=== PATIENT | male | born 1960 | race Caucasian/White ===

== ENCOUNTER 2019-10-06 08:19 | Emergency (ER) | payer OTHER, SELFPAY ==
--- NOTE | 2019-10-06 08:24 | ED.GENADULT ---
HPI - General Adult General Chief complaint: Urogenital-Male Stated complaint: Possible UTI Time Seen by Provider: 10/06/19 09:18 Source: patient Mode of arrival: ambulatory Limitations: no limitations History of Present Illness HPI narrative: 59-year-old male patient presents to the [facility] with complaints of urinary symptoms for the past week. Patient states he has had a little bit of discomfort with urination along with some pressure. Patient states he has also noticed he is recently had trouble starting his stream. Patient states he has had a UTI before couple of years ago. Patient states he has been told in the past that he might have an enlarged prostate but has never been checked out by urologist. Denies any fevers, low back pain, abdominal pain. Patient denies any nausea vomiting or diarrhea. Denies taking thing for the pain. Patient states that his significant other did have some leftover antibiotics that he has tried. Related Data Allergies Allergy/AdvReac Type Severity Reaction Status Date / Time No Known Allergies Allergy Verified 10/06/19 08:48 Review of Systems Review of Systems: Narrative: CONSTITUTIONAL: Denies fever, chills, or sweats. EYES: Denies visual changes, redness, or discharge. ENT: Denies rhinorrhea, congestion, sore throat, or otalgia. CARDIOVASCULAR: Denies chest pain, palpitations, or edema. RESPIRATORY: Denies cough or dyspnea. GASTROINTESTINAL: Denies abdominal pain, nausea, vomiting, or diarrhea. GENITOURINARY: Denies dysuria or hematuria. Positive discomfort with urination x1 week SKIN: Denies rash or itching. MUSCULOSKELETAL: Denies back pain, joint pain, or myalgia. NEUROLOGIC: Denies headache, numbness, or weakness. PSYCHIATRIC: Denies anxiety or depression. [facility] Past Medical History Medical History (Updated 10/06/19 @ 09:27 by SCOTT Pfeiffer) Saha's palsy Fractures Left wrist, tailbone Comments At the time of my signature I agree with nursing past medical history, surgical, social, and family history. There is no relevant family history pertinent to the presenting complaint. Exam Narrative: Exam Narrative: GENERAL: Well-appearing, well-nourished, and in no acute distress. HEAD: Normocephalic, atraumatic. EYES: PERRLA and EOMI. ENT: Nares clear, no rhinorrhea or epistaxis. Mucous membranes moist. NECK: Supple. No lymphadenopathy CHEST: Clear to auscultation. No respiratory distress. HEART: Regular rate and rhythm. No murmur heard. Normal peripheral pulses. ABDOMEN: Soft, nontender, nondistended, normal active bowel sounds. No CVA tenderness on percussion. EXTREMITIES: Normal range of motion. No edema. SKIN: Warm, dry, no rash. NEURO: No focal deficits. Alert and oriented x3. Course Vital Signs Vital signs: Vital Signs Temperature 36.8 C 10/06/19 08:38 Pulse Rate 70 10/06/19 08:38 Respiratory Rate 16 10/06/19 08:38 Blood Pressure 153/96 H 10/06/19 08:38 Pulse Oximetry 99 10/06/19 08:38 Temperature 36.8 C 10/06/19 08:38 Pulse Rate 70 10/06/19 08:38 Respiratory Rate 16 10/06/19 08:38 Blood Pressure 153/96 H 10/06/19 08:38 Pulse Oximetry 99 10/06/19 08:38 Vital signs reviewed. The patient has been informed that they may have pre-hypertension or Hypertension based on a BP reading in the department. I recommend that the patient call the primary care provider listed on their discharge instructions or a physician of their choice this week to arrange follow up for further evaluation of possible pre-hypertension or Hypertension Medical Decision Making Differential Diagnosis Differential Diagnosis: Differential diagnosis: Uncomplicated lower UTI, uncomplicated UTI, polynephritis, penile trauma,balanoposthitis, phimosis, paraphimosis, testicular torsion, epididymitis, prostatitis, varicocele, spermatocele, hydrocele, hernia. Discussed with patient that the urine dip does have a little bit of leukocytes and blood in the urine a
[2019-10-06 08:38] VITALS: BP 153/96; PULSE 70; RESP 16; TEMP 36.8; O2SAT 99
--- NOTE | 2019-10-06 09:05 | PC.NURSE ---
Pt is still attempting to provide urine specimen.
== END 2019-10-06 09:30 | disposition home or self-care (01) ==
PROVIDERS: Emergency Provider Nurse Practitioner Family
DX: N30.01 Acute cystitis with hematuria (principal)
CPT/HCPCS: 81003; 87086; 99213; G0463

== ENCOUNTER 2021-10-14 12:24 | Emergency (ER) | payer OTHER, SELFPAY ==
[2021-10-14 12:33] VITALS: BP 178/130; PULSE 83; RESP 16; TEMP 37; O2SAT 99
--- NOTE | 2021-10-14 12:48 | ED_ITS ---
HPI - URI/Sore Throat General Chief Complaint: Upper Respiratory Infection Stated Complaint: Raspy Voice Time Seen by Provider: 10/14/21 12:48 Source: patient Mode of arrival: ambulatory Limitations: no limitations Related Data Home Medications Medication Instructions Recorded Confirmed calcium carbonate-vitamin D3 [All tablet PO 10/14/21 Day Calcium] magnesium mg PO 10/14/21 Allergies Allergy/AdvReac Type Severity Reaction Status Date / Time No Known Allergies Allergy Verified 10/06/19 08:48 [facility] Past Medical History Medical History (Updated 10/14/21 @ 13:00 by Alice Polanco NP) Saha's palsy Fractures Left wrist, tailbone Course Course Level of Care: Express Care Visit Vital Signs Vital signs: Vital Signs Temperature 37.0 C 10/14/21 12:33 Pulse Rate 83 10/14/21 12:33 Respiratory Rate 16 10/14/21 12:33 Blood Pressure 178/130 H 10/14/21 12:33 Pulse Oximetry 99 10/14/21 12:33 Temperature 37.0 C 10/14/21 12:33 Pulse Rate 83 10/14/21 12:33 Respiratory Rate 16 10/14/21 12:33 Blood Pressure 178/130 H 10/14/21 12:33 Pulse Oximetry 99 10/14/21 12:33 Discharge Plan Discharge Clinical Impression: Hoarseness of voice, Elevated blood pressure reading Patient Disposition: Home, Self-Care Condition: Stable Instructions: Antibiotic Form, Hypertension (ED) Additional Instructions: Take medications as prescribed. Follow-up with your primary care physician in 1 week for further evaluation of hoarseness and your elevated blood pressure. Prescriptions: New methylprednisolone [Medrol (Dann)] 4 mg tablets,dose pack See Rx Instructions PO .COMPLEX Qty: 21 RF: 0 fluticasone propionate [Flonase Allergy Relief] 50 mcg/actuation spray,suspension 1 spray intranasal BID Qty: 16 RF: 0 loratadine [Claritin] 10 mg tablet 10 mg PO DAILY Qty: 30 RF: 0 No Action magnesium 100 mg Tablet PO RF: 0 All Day Calcium 600 mg(1,500mg) -500 unit Tablet Extended Release 24 Hr PO RF: 0 Follow-up/Referrals: PHYSICIAN,[employer] [facility] [facility] [Primary Care Provider] - Time of Disposition: 13:00
[2021-10-14 13:12] VITALS: BP 156/112
== END 2021-10-14 13:04 | disposition home or self-care (01) ==
PROVIDERS: Emergency Provider Nurse Practitioner Family
DX: R49.0 Dysphonia (principal); R03.0 Elevated blood-pressure reading, without diagnosis of hypertension
CPT/HCPCS: 99213; G0463

== ENCOUNTER → 2021-11-24 18:32 | Emergency (ER) | payer OTHER, SELFPAY ==
[2021-11-24] VITALS (7 sets, daily range): BP systolic 111–210; BP diastolic 61–103; PULSE 55–99; RESP 12–19; TEMP 36.3; O2SAT 95–98
--- NOTE | ~2021-11-24 | CT_ITS ---
EXAMINATION: CT soft tissue neck chest wo DATE: 11/24/2021 20:13 INDICATION: Laryngitis. Hoarseness. Night sweats. TECHNIQUE: Computed tomography (CT) of the neck and chest was performed without intravenous contrast. The dose-length product was 1639.23 mGy-cm. Automated exposure control and iterative reconstruction technique were employed. COMPARISON: None FINDINGS: NECK: No significant neck soft tissue abnormality. Mucosal and parapharyngeal spaces are symmetric. N o focal walled off fluid collection identified to suggest abscess, although evaluation for abscess li mited without contrast. There is periodontal disease with tooth #12 with possible periapical abscess. There is moderate spondylosis at C5-6 with disc narrowing and to a lesser degree C6-7. No acute bone or joint abnormality. CHEST: No significant pleural or pericardial effusion. Densely calcified granuloma right lower lobe. No endobronchial lesions. Calcified mediastinal lymph nodes, consistent with chronic granulomatous di sease. There is atherosclerosis and ectasia of the ascending thoracic aorta measuring up to 3.7 cm. T here is atherosclerosis of the coronary arteries. No pneumothorax. IMPRESSION: 1. No acute abnormality of the neck or chest. Reviewed, dictated and finalized at location A.
--- NOTE | 2021-11-24 19:59 | ECG_ITS ---
Measurements Intervals [place] Rate: 75 P: 54 [place]: 195 QRS: -3 QRSD: 89 T: 52 QT: 388 QTc: 434 Interpretive Statements SINUS RHYTHM ATRIAL PREMATURE COMPLEXES DELAYED PRECORDIAL R/S TRANSITION LEFT VENTRICULAR HYPERTROPHY BASELINE WANDER- I, II BORDERLINE ECG Electronically Signed On 11-24-2021 20:34:17 CDT by Faheem Peter D.O.
--- NOTE | 2021-11-24 20:02 | ED.URI ---
HPI - URI/Sore Throat General Chief Complaint: Upper Respiratory Infection Stated Complaint: Laryngitis Since JUL Time Seen by Provider: 11/24/21 19:34 Source: patient Mode of arrival: ambulatory Limitations: no limitations History of Present Illness HPI Narrative: This is a 61 year old male that presents to the ER for hoarseness noted since July. Also reports he was having some night sweats. He been evaluated for this a couple of times at Urgent care and finished several rounds of antibiotics and steroids without lasting improvement. Denies fevers. Related Data Home Medications Medication Instructions Recorded Confirmed calcium carb-vitamin D3 ER 600 mg tablet PO 10/14/21 (1,500 mg)-500 unit tablet,ER 24 hr magnesium 100 mg tablet mg PO 10/14/21 Allergies Allergy/AdvReac Type Severity Reaction Status Date / Time No Known Allergies Allergy Verified 11/24/21 18:39 Review of Systems Review of Systems: CONSTITUTIONAL: Reports sweats. Denies fever ENT: Denies sore throat CARDIOVASCULAR: Denies chest pain or edema RESPIRATORY: Denies dyspnea. All systems reviewed & are unremarkable except as noted in HPI and below PMFSH Past Medical History Medical History (Updated 11/24/21 @ 23:32 by Mirna Avelar PA-C) Saha's palsy Fractures Left wrist, tailbone Social History Social History (Updated 11/24/21 @ 20:07 by Mirna Avelar PA-C) Smoking status: Former smoker Tobacco type: cigars Exam Narrative: GENERAL: Well-appearing, well-nourished, and in no acute distress. HEAD: Normocephalic, atraumatic. EYES: EOMI. ENT: Nares clear, no rhinorrhea or epistaxis. Mucous membranes moist. Oropharynx without tonsillar hypertrophy exudate or other lesions. Bilateral TMs pearly ayala non-bulging NECK: Supple. No adenopathy or masses. CHEST: Clear to auscultation. No respiratory distress. No wheezes rales or rhonchi HEART: Regular rate and rhythm. No murmur heard. Normal peripheral pulses. EXTREMITIES: Normal range of motion. No edema. SKIN: Warm, dry, no rash. NEURO: No focal deficits. Alert and oriented x3. PSYCH: Normal mood and affect Course Vital Signs Vital signs: Vital Signs Temperature 97.4 F L 11/24/21 18:36 Pulse Rate 77 11/24/21 18:36 Respiratory Rate 18 11/24/21 18:36 Blood Pressure 210/103 H 11/24/21 18:36 Pulse Oximetry 97 11/24/21 18:36 Oxygen Delivery Room Air 11/24/21 18:36 Temperature 97.4 F L 11/24/21 18:36 Pulse Rate 72 11/24/21 22:01 Respiratory Rate 12 11/24/21 22:01 Blood Pressure 116/69 11/24/21 22:00 Pulse Oximetry 97 11/24/21 22:01 Oxygen Delivery Room Air 11/24/21 18:36 MDM - URI/Sore Throat MDM Narrative Medical decision making narrative: Patient presents to the emergency department for hoarseness ongoing over several months. Also reporting some night sweats. He is afebrile and nontoxic-appearing. Noted to be hypertensive in the 210s-230s systolic. CBC and metabolic panel concerning findings. Due to patient's symptoms CT scan of the neck and chest was obtained which was without acute findings. Patient's blood pressure was treated with IV hydralazine. About 40 minutes after this patient was noted to have likely vasovagal episode with bradycardia. Placed in Trendelenburg with return of normal sinus rhythm. Due to this episode and patient's blood pressure plan was to admit. Patient refuses to stay in the hospital at this time. He was given risks of doing so. He will be signing out AGAINST MEDICAL ADVICE. Was instructed that he should have some close follow-up with his primary doctor. Instructed he can return at any time for further evaluation and management Lab Data Attestation: I reviewed the patient's lab results. Result diagrams: 11/24/21 20:20 11/24/21 20:20 Labs: Lab Results 11/24/21 11/24/21 11/24/21 Range/Units 20:20 20:20 21:29 WBC 5.6 (4.5-10.0) K/mm3 RBC 5.15 (4.6
[2021-11-24 20:31] LABS: Basophils Percent Auto 0.7 % (0.2-1.2); Eosinophils Absolute Auto 0.1 K/mm3 (0-0.3); Eosinophils Percent Auto 0.9 % (0-4.4); Hematocrit 46.8 % (42.0-52.0); Hemoglobin 15.7 g/dL (14.0-18.0); Immature Granulocyte Absolute 0.02 K/mm3 (0.00-0.031); Immature Granulocyte Percent A 0.4 % (0-0.5); Lymphocytes Absolute Auto 1.68 K/mm3 (0.9-3.2); Lymphocytes Percent Auto 29.9 % (18.3-44.2); Mean Corpuscular HGB Conc 33.5 g/dl (32-36); Mean Corpuscular Hemoglobin 30.5 pg (26-34); Mean Corpuscular Volume 90.9 fl (80-100); Mean Platelet Volume 10.6 fl (7.4-10.4); Monocytes Absolute Auto 0.6 K/mm3 (0.1-0.6); Monocytes Percent Auto 10.5 % (2.6-8.5); Neutrophils Absolute Auto 3.2 K/mm3 (1.3-6.7); Neutrophils Percent Auto 57.6 % (45.5-73.1); Platelet Count Result 235 k/mm3 (150-375); Red Blood Count 5.15 M/mm3 (4.6-6.20); Red Cell Distribution Width 12.6 % (11.5-14.5); White Blood Count 5.6 K/mm3 (4.5-10.0)
[2021-11-24] MEDS: hydrALAZINE HCL 20 MG/ML VIAL IV PUSH (20:39)
[2021-11-24 20:42] LABS: Alanine Aminotransferase 29 U/L (6-50); Albumin Level 4.7 g/dL (3.5-5.1); Alkaline Phosphatase 83 U/L (38-126); Anion Gap 8 mmol/L (8-16); Aspartate Amino Transferase 31 U/L (17-59); Bilirubin,Total 1.4 mg/dL (0.2-1.3); Blood Urea Nitrogen 15 mg/dL (9-20); Calcium 9.3 mg/dL (8.4-10.2); Carbon Dioxide 28 mmol/L (22-30); Chloride 103 mmol/L (98-107); Estimated CRCL calculation 76 ml/min; Estimated Glomerular Filt Rate > 60; Glucose 112 mg/dL (65-110); Potassium 3.6 mmol/L (3.4-5.0); Sodium 139 mmol/L (137-145)
[2021-11-24 21:30] LABS: Glucose Point of Care 122 mg/dl (65-105)
--- NOTE | 2021-11-24 21:33 | ECG_ITS ---
Measurements Intervals [place] Rate: 50 P: 23 [place]: 186 QRS: 10 QRSD: 86 T: 77 QT: 418 QTc: 382 Interpretive Statements SINUS BRADYCARDIA ATRIAL PREMATURE COMPLEXES LEFT VENTRICULAR HYPERTROPHY WITH ST-T CHANGE CONSIDER INFERIOR INFARCT, AGE INDETERMINATE BORDERLINE ST-T WAVE ABNORMALITY- LATERAL LEADS BASELINE ARTIFACT- I, II, III, V3-V6 ABNORMAL ECG Electronically Signed On 11-25-2021 7:02:44 CDT by Faheem Peter D.O.
--- NOTE | 2021-11-24 21:40 | PC.NURSE ---
MD/RN observed pt have a heart rate of 40-30's on the laboratory monitor. ERP and RN at bedside, pt placed on life noel monitor, crash cart at bedside. 2nd iv line established, iv fluid initiated, bs checked, repeat ekg obtained.
[2021-11-24] MEDS: SODIUM CHLORIDE 0.9% IV 1,000 ML 999 ML IV CONT (21:41)
--- NOTE | 2021-11-24 23:23 | PC.NURSE ---
Patient requesting to go home, states he wants to leave. PA and wild life manager notified.
[2021-11-24 23:46] LABS: SARS-CoV-2 RNA PCR Negative
== END | disposition left against medical advice (07) ==
PROVIDERS: Physician Assistant; Emergency Provider Emergency Medicine; PCP Internal Medicine
DX: R55 Syncope and collapse (principal); I16.0 Hypertensive urgency; R00.1 Bradycardia, unspecified; Z20.822 Contact with and (suspected) exposure to COVID-19; Z87.891 Personal history of nicotine dependence
CPT/HCPCS: 36415; 70490; 71250; 80053; 82948; 85025; 93005; 96361; 96374; 99284; C9803; J0360; J7030; U0003; U0005

== ENCOUNTER 2022-04-23 09:08 | Emergency (ER) | payer OTHER, SELFPAY ==
[2022-04-23] VITALS (20 sets, daily range): BP systolic 168–196; BP diastolic 104–129; PULSE 63–79; RESP 12–23; TEMP 36.6; O2SAT 92–98
--- NOTE | ~2022-04-23 | XR_ITS ---
EXAMINATION: XR chest 2V 04/23/2022 10:05 INDICATION: Chest pain. PROCEDURE: 2 view chest COMPARISON: 02/15/2016 FINDINGS: The lungs are clear. The cardiomediastinal silhouette is within normal limits. There are no pleural effusions. There is no pneumothorax suspected. Calcified granuloma of the right lower lo be. IMPRESSION: 1: NO ACUTE CARDIOPULMONARY DISEASE. Reviewed, dictated and finalized at location B.
--- NOTE | ~2022-04-23 | XR_ITS ---
EXAMINATION: XR shoulder RT min 2V DATE: 04/23/2022 10:06 INDICATION: Right shoulder pain. Right chest pain. TECHNIQUE: 4 views of right shoulder were obtained. COMPARISON: None. FINDINGS: Bone alignment is normal. No fracture. There is mild osteoarthritis of glenohumeral joint a nd severe osteoarthritis of acromioclavicular joint. A calcified right lung nodule is consistent with old granulomatous disease. IMPRESSION: 1. Polyarticular osteoarthritis. Reviewed, dictated and finalized at location A.
--- NOTE | 2022-04-23 09:28 | ECG_ITS ---
Measurements Intervals [place] Rate: 72 P: 38 [place]: 168 QRS: -5 QRSD: 87 T: 45 QT: 392 QTc: 429 Interpretive Statements SINUS RHYTHM MODERATE VOLTAGE CRITERIA FOR LVH, CONSIDER NORMAL VARIANT CANNOT RULE OUT INFERIOR INFARCTION ABNORMAL ECG COMPARED TO ECG 11/24/2021 21:30:35 HEART RATE HAS INCREASED Electronically Signed On 04-23-2022 16:11:14 CDT by Oral Wells M.D.
--- NOTE | 2022-04-23 09:42 | ED.GENADULT ---
HPI - General Adult General Chief complaint: Unspecified Stated complaint: shoulder pain Time Seen by Provider: 04/23/22 09:15 History of Present Illness HPI narrative: 62-year-old male with history of hypertension, father who of heart attack in his 40s, presents here with right-sided chest pain. He had eaten a very extravagant meal over the weekend which consisted of a seafood broil slathered in butter, then had an incredible breakfast the next day consisting of 3 eggs, tortillas, hot dogs, etc. Afterwards had a right sided chest pressure, he then got on an exercise bike and the pain got worse and seemed to radiate down his right arm/shoulder. He also endorses a slight tingling in his left first finger. Not currently having any pain now except some in his shoulder. Related Data Home Medications Medication Instructions Recorded Confirmed calcium carb-vitamin D3 ER 600 mg tablet PO 10/14/21 (1,500 mg)-500 unit tablet,ER 24 hr magnesium 100 mg tablet mg PO 10/14/21 Allergies Allergy/AdvReac Type Severity Reaction Status Date / Time No Known Allergies Allergy Verified 04/23/22 09:20 Review of Systems Review of Systems: CONST: No fever. HEENT: No sore throat C/V: Right-sided chest pain RESP: No cough GI: No nausea or vomiting : No dysuria. M/S: Right shoulder pain SKIN: No rash. NEURO: Tingling in left first finger PSYCH: [No depression] [facility] Past Medical History Medical History Saha's palsy Fractures Left wrist, tailbone Social History Social History Smoking status: Former smoker Tobacco type: cigars Exam Narrative: EXAMINATION OF ORGAN SYSTEMS/BODY AREAS: Constitutional: Vital signs per nursing GENERAL:[No acute distress, non-toxic appearing.] HEAD: Normal with no signs of head trauma. EYES: EOMI, conjunctiva normal ENT: Hearing grossly intact LUNGS: Nonlabored breathing. HEART: [Regular rate and rhythm] ABD: [Soft], [nontender to palpation] EXT: Normal range of motion SKIN: [No rashes or lesions.] Normal pulses upper and lower extremities bilaterally NEURO: [Alert and oriented x 3. No gross focal sensory or strength deficits.] PSYCH: Normal affect Course Vital Signs Vital signs: Vital Signs Temperature 97.8 F 04/23/22 09:17 Pulse Rate 79 04/23/22 09:17 Respiratory Rate 16 04/23/22 09:17 Blood Pressure 196/114 H 04/23/22 09:17 Pulse Oximetry 98 04/23/22 09:17 Oxygen Delivery Room Air 04/23/22 09:17 Temperature 97.8 F 04/23/22 09:17 Pulse Rate 67 04/23/22 13:21 Respiratory Rate 18 04/23/22 13:21 Blood Pressure 174/104 H 04/23/22 13:21 Pulse Oximetry 98 04/23/22 13:21 Oxygen Delivery Room Air 04/23/22 09:17 Medical Decision Making MDM Narrative Medical decision making narrative: ED COURSE AND MEDICAL DECISION MAKIN-year-old male presenting with right shoulder pain. EKG done in triage negative for acute ischemic changes. Cardiac workup is initiated. EKG: Performed in triage and interpreted by me. Normal sinus rhythm. Rate [72]. Normal axis. MA normal. QRS duration normal. QTc normal. No pathologic Q waves. No ST segment elevation or depression to suggest acute ischemia. HEART score is 3 with no acute ischemic changes on EKG and negative troponin making ACS unlikely. Wells low risk with negative PERC making PE unlikely. Presentation not consistent with dissection or aneurysm without severe pain or pulse deficits. CXR negative for mediastinal widening. Shoulder x-ray notable for osteoarthritis and I do suspect this may be this because of his symptoms, I did note that he had high blood pressure here but this appears to be his baseline based on his last few blood pressures, he is counseled on the risks of having high blood pressure including heart attack and stroke and I will start him on amlodipine at this time, and have him fo
[2022-04-23] MEDS: ASPIRIN 81 MG CHEWABLE TABLET 324 MG PO (09:49)
[2022-04-23 09:51] LABS: Basophils Percent Auto 0.6 % (0.2-1.2); Eosinophils Absolute Auto 0.1 K/mm3 (0-0.3); Eosinophils Percent Auto 0.8 % (0-4.4); Hemoglobin 15.4 g/dL (14.0-18.0); Immature Granulocyte Absolute 0.03 K/mm3 (0.00-0.031); Immature Granulocyte Percent A 0.5 % (0-0.5); Lymphocytes Absolute Auto 1.28 K/mm3 (0.9-3.2); Lymphocytes Percent Auto 20.7 % (18.3-44.2); Mean Corpuscular HGB Conc 34.2 g/dl (32-36); Mean Corpuscular Hemoglobin 31.4 pg (26-34); Mean Corpuscular Volume 91.8 fl (80-100); Mean Platelet Volume 10.3 fl (7.4-10.4); Monocytes Absolute Auto 0.5 K/mm3 (0.1-0.6); Monocytes Percent Auto 7.6 % (2.6-8.5); Neutrophils Absolute Auto 4.3 K/mm3 (1.3-6.7); Neutrophils Percent Auto 69.8 % (45.5-73.1); Platelet Count Result 223 k/mm3 (150-375); Red Cell Distribution Width 12.5 % (11.5-14.5); White Blood Count 6.2 K/mm3 (4.5-10.0)
[2022-04-23 09:57] LABS: INR 1.1; Prothrombin Time 13.4 Seconds (11.1-14.7)
[2022-04-23 09:58] LABS: Partial Thromboplastin Time 28.5 SECONDS (22.3-36.8)
[2022-04-23 10:00] LABS: Alanine Aminotransferase 28 U/L (6-50); Albumin Level 4.5 g/dL (3.5-5.1); Alkaline Phosphatase 84 U/L (38-126); Anion Gap 14 mmol/L (8-16); Aspartate Amino Transferase 41 U/L (17-59); Bilirubin,Total 1.6 mg/dL (0.2-1.3); Blood Urea Nitrogen 17 mg/dL (9-20); Carbon Dioxide 26 mmol/L (22-30); Chloride 100 mmol/L (98-107); Estimated CRCL calculation 73 ml/min; Estimated Glomerular Filt Rate > 60; Glucose 130 mg/dL (65-110); Lipase 51 U/L (23-300); Potassium 3.8 mmol/L (3.4-5.0); Sodium 140 mmol/L (137-145)
[2022-04-23 10:12] LABS: Troponin I < 0.012 ng/mL (0.000-0.034)
[2022-04-23] MEDS: amLODIPine BESYLATE 5 MG TABLET 10 MG PO (11:20)
[2022-04-23 13:10] LABS: Troponin I < 0.012 ng/mL (0.000-0.034)
== END 2022-04-23 13:22 | disposition home or self-care (01) ==
PROVIDERS: Emergency Provider Emergency Medicine; PCP Internal Medicine
DX: I10 Essential (primary) hypertension (principal); M19.011 Primary osteoarthritis, right shoulder; Z87.891 Personal history of nicotine dependence; R94.31 Abnormal electrocardiogram [ECG] [EKG]
CPT/HCPCS: 36415; 71046; 73030; 80053; 83690; 84484; 85025; 85610; 85730; 93005; 99284; A9270

== ENCOUNTER 2022-05-14 12:32 | Outpatient (CLI) | payer OTHER, SELFPAY ==
[2022-05-14 13:01] LABS: Appearance Urine Clear (Clear); Bilirubin Urine Negative (Negative); Blood Urine Negative (Negative); Glucose Urine UA Negative (Negative); Ketones Urine Negative (Negative); Leukocyte Esterase Ur Negative (Negative); Nitrate Urine Negative (Negative); Protein Urine Negative (Negative); Urobilinogen Urine 0.2 mg/dL (0.2-1.0)
[2022-05-14 13:08] LABS: Add Urine Microscopic? NO; Color Urine Light Yellow (Yellow)
[2022-05-14 13:29] LABS: Cholesterol 194 mg/dL (0-200); HDL Direct 72 mg/dL (40-60); LDL Cholesterol Calculated 111 mg/dL (<130); Prostate Specific Antigen 2.2 ng/mL (< OR = 4.0); Triglycerides 55 mg/dL (0-150)
== END 2022-05-14 12:33 | disposition home or self-care (01) ==
LOC: CHSLAB 12:34
PROVIDERS: PCP Internal Medicine; Visit Provider Internal Medicine
DX: Z00.00 Encounter for general adult medical examination without abnormal findings (principal); I10 Essential (primary) hypertension; R01.1 Cardiac murmur, unspecified; Z12.5 Encounter for screening for malignant neoplasm of prostate
CPT/HCPCS: 36415; 80061; 81003; 84153; G0103

== ENCOUNTER 2022-06-08 13:25 | Outpatient (CLI) | payer OTHER, SELFPAY ==
--- NOTE | 2022-06-08 01:00 | ECHO_ITS ---
Patient Info Name: Loi Waldron Age: 62 years : 1960 Gender: Male Ht: 68 in Wt: 185 lbs BSA: 2.03 m2 HR: 68 bpm BP: 150 / 100 mmHg Heart Rhythm: Sinus Rhythm Technical Quality: Fair Exam Date: 06/08/2022 2:23 PM Exam Location: [facility] Patient Status: Outpatient Admit Date: 06/08/2022 Staff Ordering Physician: Parveen Campos MD Vp Research: Merari Goodson RDCS Attending Provider: Parveen Campos MD Exam Type: CA echo doppler color flow Study Info Indications - htn, systolic murmur Complete two-dimensional, color flow and Doppler transthoracic echocardiogram is performed. Summary 1. Complete two-dimensional, color flow and Doppler transthoracic echocardiogram is performed. 2. Left ventricular chamber dimension is normal. 3. Left ventricular systolic function is normal, estimated at 60-65%. 4. The left ventricular diastolic function is grade I diastolic dysfunction. 5. E/e' 5 is not elevated. 6. There is mild aortic valve sclerosis involving primarily the left coronary cusp. 7. There is trace tricuspid valve regurgitation. 8. No pulmonary hypertension, estimated pulmonary arterial systolic pressure is 23 mmHg. 9. There is trace pulmonic regurgitation. Left Ventricle E/e' 5 is not elevated. Left ventricular chamber dimension is normal. Left ventricular systolic function is normal, estimated at 60-65%. The left ventricular diastolic function is grade I diastolic dysfunction. Right Ventricle Right ventricular systolic function is normal and with normal TAPSE 2.5 cm. Right ventricular chamber dimension is normal. Left Atria Left atrial chamber dimension is normal. Right Atria Right atrial chamber dimension is normal. Aortic Valve There is mild aortic valve sclerosis involving primarily the left coronary cusp. The aortic valve is trileaflet. There is no aortic valve stenosis. There is no aortic valve regurgitation. Pulmonic Valve There is trace pulmonic regurgitation. Mitral Valve There is no mitral valve stenosis. There is no mitral valve regurgitation. Tricuspid Valve There is trace tricuspid valve regurgitation. No pulmonary hypertension, estimated pulmonary arterial systolic pressure is 23 mmHg. Pericardium/Pleural There is no pericardial effusion. Inferior Vena Cava Normal inferior vena cava with >50% collapse upon inspiration consistent with normal right atrial pressure, 5 mmHg. Aorta The aortic root size at the sinus of Valsalva is normal. Left Ventricular Outflow Tract Name Value Normal LVOT 2D LVOT Diameter 2.1 cm LVOT Doppler LVOT Peak Velocity 89 cm/s LVOT Peak Gradient 3 mmHg LVOT Mean Gradient 2 mmHg LVOT VTI 19 cm LVOT VTI/AV VTI Ratio 0.8 LVOT Stroke Volume 64 ml Pulmonic Valve Name Value Normal
== END 2022-06-08 13:26 | disposition home or self-care (01) ==
LOC: CHSIMG 13:28
PROVIDERS: PCP Internal Medicine; Visit Provider Internal Medicine
DX: Z00.00 Encounter for general adult medical examination without abnormal findings (principal); I10 Essential (primary) hypertension; R01.1 Cardiac murmur, unspecified
CPT/HCPCS: 93306

== ENCOUNTER 2023-07-18 12:15 | Outpatient (CLI) | payer OTHER, SELFPAY ==
[2023-07-18 12:34] LABS: Basophils Absolute Auto 0.03 K/mm3 (0.00-0.10); Basophils Percent Auto 0.5 % (0.0-1.0); Eosinophils Absolute Auto 0.07 K/mm3 (0.02-0.50); Eosinophils Percent Auto 1.1 % (1.0-6.0); Hematocrit 44.8 % (40.0-54.0); Hemoglobin 14.7 g/dL (14.0-18.0); Immature Granulocyte Absolute 0.03 K/mm3 (0.00-0.00); Immature Granulocyte Percent A 0.5 % (0.0-0.0); Lymphocytes Absolute Auto 1.74 K/mm3 (1.10-4.50); Mean Corpuscular HGB Conc 32.8 g/dL (32.0-36.0); Mean Corpuscular Hemoglobin 29.8 pg (27.0-31.0); Mean Corpuscular Volume 90.9 fL (78.0-102.0); Mean Platelet Volume 10.4 fl (8.7-11.0); Monocytes Absolute Auto 0.62 K/mm3 (0.10-0.90); Neutrophils Absolute Auto 3.7 K/mm3 (1.7-7.2); Neutrophils Percent Auto 59.9 % (50.0-70.0); Platelet Count Result 261 K/mm3 (150-420); Red Blood Count 4.93 M/mm3 (4.70-6.10); Red Cell Distribution Width 12.4 % (11.6-14.4); White Blood Count 6.2 K/mm3 (4.8-10.8)
[2023-07-18 13:17] LABS: Alanine Aminotransferase 23 U/L (16-63); Alkaline Phosphatase 80 U/L (46-116); Anion Gap 9 mmol/L (8-16); Aspartate Amino Transferase 13 U/L (15-37); Bilirubin,Total 0.7 mg/dL (0.00-1.00); Blood Urea Nitrogen 21 mg/dL (7-18); Calcium 9.1 mg/dL (8.5-10.1); Carbon Dioxide 29 mmol/L (21-32); Chloride 102 mmol/L (98-108); Cholesterol 183 mg/dL (0-200); Estimated Glomerular Filt Rate > 60; Glucose 122 mg/dL (70-99); HDL Direct 70 mg/dL (40-60); LDL Cholesterol Calculated 107 mg/dL (<130); Osmolality Calculated 294 mOsm/kg (285-295); Potassium 4.1 mmol/L (3.5-5.1); Prostate Specific Antigen 2.4 ng/mL (< OR = 4.0); Sodium 140 mmol/L (136-145); Thyroid Stimulating Hormone 2.12 uIU/mL (0.36-3.74); Total Protein 7.4 g/dL (6.4-8.2); Triglycerides 32 mg/dL (0-150)
[2023-07-18 14:38] LABS: Appearance Urine Clear (Clear); Bilirubin Urine Negative (Negative); Blood Urine Negative (Negative); Color Urine Light Yellow (Yellow); Glucose Urine UA Negative (Negative); Ketones Urine Negative (Negative); Leukocyte Esterase Ur Trace (Negative); Nitrate Urine Negative (Negative); Protein Urine Negative (Negative); Urobilinogen Urine 0.2 mg/dL (0.2-1.0)
[2023-07-18 14:48] LABS: Add Urine Microscopic? YES; RBC Urine None seen /hpf (0-2)
[2023-07-18 14:49] LABS: Bacteria Urine Trace /hpf; Squamous Epithelial Cell Urine Rare /hpf (Few); WBC Urine 0-3 /hpf (0-3)
[2023-07-19 12:52] LABS: Hemoglobin A1C 6.3 % (<5.7)
== END 2023-07-18 12:16 | disposition home or self-care (01) ==
LOC: CHSLAB 12:19
PROVIDERS: PCP Internal Medicine; Visit Provider Internal Medicine
DX: Z00.00 Encounter for general adult medical examination without abnormal findings (principal); I10 Essential (primary) hypertension; I70.90 Unspecified atherosclerosis; R73.01 Impaired fasting glucose; Z12.5 Encounter for screening for malignant neoplasm of prostate
CPT/HCPCS: 36415; 80053; 80061; 81001; 83036; 84153; 84443; 85025; G0103

== ENCOUNTER 2023-12-28 13:06 | Outpatient (CLI) | payer OTHER, SELFPAY ==
[2023-12-28 15:21] LABS: Hemoglobin A1C 6.2 % (<5.7)
[2023-12-28 15:25] LABS: Alanine Aminotransferase 28 U/L (16-63); Albumin Level 3.9 g/dL (3.4-5.0); Alkaline Phosphatase 72 U/L (46-116); Anion Gap 9 mmol/L (4-12); Aspartate Amino Transferase 15 U/L (15-37); Bilirubin,Total 1.1 mg/dL (0.00-1.00); Blood Urea Nitrogen 18 mg/dL (7-18); Carbon Dioxide 28 mmol/L (21-32); Chloride 100 mmol/L (98-108); Estimated Glomerular Filt Rate > 60; Glucose 103 mg/dL (70-99); Osmolality Calculated 285 mOsm/kg (285-295); Potassium 4.2 mmol/L (3.5-5.1); Sodium 137 mmol/L (136-145); Total Protein 7.7 g/dL (6.4-8.2)
== END 2023-12-28 13:07 | disposition home or self-care (01) ==
LOC: CHSLAB 13:09
PROVIDERS: PCP Internal Medicine; Visit Provider Internal Medicine
DX: R73.01 Impaired fasting glucose (principal); I10 Essential (primary) hypertension
CPT/HCPCS: 36415; 80053; 83036

== ENCOUNTER 2024-07-16 15:39 | Outpatient (CLI) | payer OTHER, SELFPAY ==
[2024-07-16 15:58] LABS: Basophils Absolute Auto 0.03 K/mm3 (0.00-0.10); Basophils Percent Auto 0.4 % (0.0-1.0); Eosinophils Absolute Auto 0.06 K/mm3 (0.02-0.50); Eosinophils Percent Auto 0.9 % (1.0-6.0); Hematocrit 41.5 % (40.0-54.0); Immature Granulocyte Absolute 0.03 K/mm3 (0.00-0.00); Immature Granulocyte Percent A 0.4 % (0.0-0.0); Lymphocytes Absolute Auto 1.66 K/mm3 (1.10-4.50); Lymphocytes Percent Auto 23.8 % (18.0-42.0); Mean Corpuscular HGB Conc 33.7 g/dL (32-36); Mean Corpuscular Hemoglobin 30.3 pg (27.0-31.0); Mean Corpuscular Volume 89.8 fL (78.0-102.0); Mean Platelet Volume 9.8 fl (8.7-11.0); Monocytes Absolute Auto 0.61 K/mm3 (0.10-0.90); Monocytes Percent Auto 8.8 % (2.0-11.0); Neutrophils Absolute Auto 4.58 K/mm3 (1.70-7.20); Neutrophils Percent Auto 65.7 % (50.0-70.0); Platelet Count Result 343 K/mm3 (150-420); Red Blood Count 4.62 M/mm3 (4.70-6.10); Red Cell Distribution Width 12.5 % (11.6-14.4)
[2024-07-16 16:10] LABS: Hemoglobin A1C 6.9 % (<5.7)
[2024-07-16 16:12] LABS: Add Urine Microscopic? YES; Appearance Urine Clear (Clear); Bilirubin Urine Negative (Negative); Blood Urine Negative (Negative); Color Urine Light Yellow (Yellow); Glucose Urine UA Negative (Negative); Ketones Urine Negative (Negative); Leukocyte Esterase Ur 2+ (Negative); Nitrate Urine Negative (Negative); Protein Urine Negative (Negative); Urobilinogen Urine 0.2 mg/dL (0.2-1.0)
[2024-07-16 16:37] LABS: Bacteria Urine Trace /hpf; RBC Urine None seen /hpf (0-2); Squamous Epithelial Cell Urine Rare /hpf (Few); WBC Urine 21-30 /hpf (0-3)
[2024-07-16 17:03] LABS: Alanine Aminotransferase 36 U/L (16-63); Albumin Level 4.1 g/dL (3.4-5.0); Alkaline Phosphatase 77 U/L (46-116); Anion Gap 11 mmol/L (4-12); Aspartate Amino Transferase 22 U/L (15-37); Bilirubin,Total 1.1 mg/dL (0.00-1.00); Blood Urea Nitrogen 17 mg/dL (7-18); Calcium 9.2 mg/dL (8.5-10.1); Carbon Dioxide 28 mmol/L (21-32); Chloride 101 mmol/L (98-108); Cholesterol 166 mg/dL (0-200); Estimated Glomerular Filt Rate 58; Glucose 109 mg/dL (70-99); HDL Direct 69 mg/dL (40-60); LDL Cholesterol Calculated 89 mg/dL (<130); Osmolality Calculated 292 mOsm/kg (285-295); Potassium 4.5 mmol/L (3.5-5.1); Prostate Specific Antigen 2.2 ng/mL (< OR = 4.0); Sodium 140 mmol/L (136-145); Total Protein 7.2 g/dL (6.4-8.2); Triglycerides 38 mg/dL (0-150)
== END 2024-07-16 15:40 | disposition home or self-care (01) ==
PROVIDERS: PCP Internal Medicine; Visit Provider Internal Medicine
DX: Z00.00 Encounter for general adult medical examination without abnormal findings (principal); I10 Essential (primary) hypertension; R73.03 Prediabetes
CPT/HCPCS: 36415; 80053; 80061; 81001; 83036; 84153; 84443; 85025; G0103

== ENCOUNTER 2025-01-19 12:19 | Outpatient (CLI) | payer OTHER, SELFPAY ==
[2025-01-19 13:10] LABS: Alanine Aminotransferase 20 U/L (6-50); Albumin Level 4.3 g/dL (3.5-5.1); Alkaline Phosphatase 66 U/L (38-126); Anion Gap 4 mmol/L (4-12); Aspartate Amino Transferase 23 U/L (17-59); Bilirubin,Total 0.8 mg/dL (0.2-1.3); Blood Urea Nitrogen 20 mg/dL (9-20); Calcium 9.0 mg/dL (8.4-10.2); Carbon Dioxide 28 mmol/L (22-30); Chloride 105 mmol/L (98-107); Cholesterol 171 mg/dL (0-200); Estimated Glomerular Filt Rate > 60; Glucose 129 mg/dL (65-110); HDL Direct 65 mg/dL; Osmolality Calculated 288 mOsm/kg (285-295); Potassium 4.9 mmol/L (3.4-5.0); Sodium 137 mmol/L (137-145); Total Protein 7.0 g/dL (6.3-8.2); Triglycerides 45 mg/dL (<150)
[2025-01-19 13:29] LABS: Hemoglobin A1C 6.5 % (<5.7)
== END 2025-01-19 12:20 | disposition home or self-care (01) ==
LOC: CHSLAB 12:23
PROVIDERS: PCP Internal Medicine; Visit Provider Internal Medicine
DX: E11.9 Type 2 diabetes mellitus without complications (principal); I10 Essential (primary) hypertension
CPT/HCPCS: 36415; 80053; 80061; 83036